=== PATIENT | female | born 1955 | race Caucasian/White ===

== ENCOUNTER 2022-12-07 11:35 | Emergency (ER) | payer MEDICARE, SELFPAY ==
[2022-12-07 11:40] VITALS: BP 155/88; PULSE 76; RESP 20; TEMP 36.5; O2SAT 95; BMI 34.8
--- NOTE | 2022-12-07 11:52 | XR_ITS ---
The [address] [address] Patient Name: MIRANDA CARBALLO MRN: [id number] date: 1955 Sex: F Assigned Patient Location: ER Current Patient Location: Accession/Order Number: [id number] Exam Date: 12/07/2022 12:00 Report Date: 12/07/2022 12:26 At the request of: GABRIEL JALLOH Procedure: XR knee LT 4V EXAM: XR knee LT 4V HISTORY: knee pain COMPARISON: None. FINDINGS: 4 radiographs of the left knee were obtained. No fracture or dislocation. Moderate to mild degenerative changes to the left knee. No joint effusion. Patella enthesophyte. XR/XR knee LT 4V IMPRESSION: No fracture or dislocation. Mild to moderate tricompartmental degenerative changes to the left knee. Electronically authenticated by: REGGIE LYNCH Date: 12/07/2022 12:26
--- NOTE | 2022-12-07 11:53 | ED.LOWEXI1 ---
HPI - Extremity Injury (Lower) General Chief Complaint: Extremity Injury, Lower Stated Complaint: LOWER EXTREMITY LEFT LEG Time Seen by Provider: 12/07/22 11:46 Source: patient Mode of arrival: Wheelchair Limitations: no limitations History of Present Illness HPI Narrative: pain throughout the left knee since exercising and doing lunges on 12/04/22. No relief with heat or ice. No meds taken this morning for pain. She is concerned that she might have strained the knee. But she also had two small areas of fracture at the proximal tibia that was diagnosed in 2019 without any blunt trauma or fall, so she is concerned about possible fracture again. Related Data Home Medications Medication Instructions Recorded Confirmed albuterol sulfate 90 mcg/actuation 2 puff inhalation Q4H PRN 12/07/22 12/07/22 aerosol inhaler shortness of breath or wheezing metoprolol succinate 25 mg 25 mg PO DAILY 12/07/22 12/07/22 tablet,extended release 24 hr nitroglycerin 0.4 mg sublingual 0.4 mg sublingual Q5M PRN chest 12/07/22 12/07/22 tablet pain rosuvastatin 20 mg tablet 20 mg PO DAILY 12/07/22 12/07/22 venlafaxine 150 mg 150 mg PO DAILY 12/07/22 12/07/22 capsule,extended release 24 hr Allergies Allergy/AdvReac Type Severity Reaction Status Date / Time No Known Drug Allergies Allergy Verified 12/07/22 11:40 Exam Narrative Exam Narrative: Vital signs reviewed and nurse's notes. The patient is not hypoxic. General: Alert, no acute distress, patient resting comfortably Skin: warm, intact, no pallor noted Head: Normocephalic, atraumatic Eye: Normal conjunctiva Respiratory: No acute distress Musculoskeletal: No evidence of deformity to the L knee. There is a minimal amount of swelling. There is no ecchymosis. No erythema or warmth noted. DP and PT pulses are intact 2+. Normal sensation, normal capillary refill less than 2 seconds. There is no cyanosis or mottling noted. The patient has popliteal tenderness of the left knee. The patient has no laxity with varus or valgus stressing. The patient has negative anterior drawer and Magalys testing. The patient was able to flex and extend although with pain. Patient was able to extend leg off the cart with pain. No tenderness noted to the left mid and distal tibia, ankle or proximal fibular area. The patient has no shortening or rotation noted to the bilateral lower extremities. Neurological: alert and orient x4, normal sensory and motor observed. Psychiatric: Cooperative Constitutional Vital Signs, click to edit/add: Last Vital Signs Temp 97.7 F 12/07/22 11:40 Pulse 76 12/07/22 11:40 Resp 20 12/07/22 11:40 BP 155/88 H 12/07/22 11:40 Pulse Ox 95 12/07/22 11:40 O2 Del Method Room Air 12/07/22 11:40 Course Vital Signs Vital signs: Vital Signs Temperature 97.7 F 12/07/22 11:40 Pulse Rate 76 12/07/22 11:40 Respiratory Rate 20 12/07/22 11:40 Blood Pressure 155/88 H 12/07/22 11:40 Pulse Oximetry 95 12/07/22 11:40 Oxygen Delivery Method Room Air 12/07/22 11:40 Temperature 97.7 F 12/07/22 11:40 Pulse Rate 76 12/07/22 11:40 Respiratory Rate 20 12/07/22 11:40 Blood Pressure 155/88 H 12/07/22 11:40 Pulse Oximetry 95 12/07/22 11:40 Oxygen Delivery Method Room Air 12/07/22 11:40 MDM - Extremity Injury (Lower) MDM Narrative Medical decision making narrative: xrays of the left knee obtained - arthritis but no fracture. Patient informed of result - ED nurse applied an adalberto wrap to the patient's left knee. Patient instructed to take tylenol for pain -she cannot take NSAIDs. PCP follow up or Orthopedic follow up if the pain persists. Imaging Data xr knee: Attestation: I have reviewed the pertinent imaging results. Radiologist's impression: Patient Name: MIRANDA CARBALLO MRN: [id number] date: 1955 Sex: F Assigned Patient Location: ER Current Patient Location: ER Accession/Order Number: [id number] Exam Date: 12/07/2022 12:00 Report Date: 12/07/2022 12:26 At the request of: GABRIEL JALLOH Procedure: XR knee LT 4V EXAM: XR knee LT 4V HISTORY: knee pain COMPARISON: None. FINDINGS: 4 radiographs of the left knee were obtained. No fracture or dislocation. Moderate to mild degenerative changes to the left knee. No joint effusion. Patella enthesophyte. IMPRESSION: No fracture or dislocation. Mild to moderate tricompartmental degenerative changes to the left knee. Electronically authenticated by: REGGIE LYNCH Date: 12/07/2022 12:26 Discharge Plan Discharge Chief Complaint: Extremity Injury, Lower Clinical Impression: Left knee sprain, Osteoarthritis of left knee Patient Disposition: Home, Self-Care Time of Disposition Decision: 12:38 Prescriptions / Home Meds: No Action albuterol sulfate 90 mcg/actuation HFA aerosol inhaler 2 puff INHALATION Q4H PRN (Reason: shortness of breath or wheezing) metoprolol succinate 25 mg tablet extended release 24 hr 25 mg PO DAILY rosuvastatin 20 mg tablet 20 mg PO DAILY venlafaxine 150 mg capsule,extended release 24hr 150 mg PO DAILY nitroglycerin 0.4 mg tablet, sublingual 0.4 mg sublingual Q5M PRN (Reason: chest pain) Instructions: Knee Sprain (ED), Osteoarthritis (ED) Stand Alone Forms: Portal Instructions Referrals: NICOLAS PATEL [Primary Care Provider] - 1 week
[2022-12-07] MEDS: ACETAMINOPHEN 500 MG TABLET 1000 MG PO (12:16)
== END 2022-12-07 12:42 | disposition home or self-care (01) ==
PROVIDERS: Emergency Provider Emergency Medicine; PCP Family Medicine
DX: S83.92XA Sprain of unspecified site of left knee, initial encounter (principal); M17.12 Unilateral primary osteoarthritis, left knee; X50.9XXA Other and unspecified overexertion or strenuous movements or postures, initial encounter; Y93.A9 Activity, other involving cardiorespiratory exercise
CPT/HCPCS: 73564; 99283